=== PATIENT | male | born 1945 | race African-American/Black ===

== ENCOUNTER 2023-06-16 20:56 | Inpatient (IN) | payer MEDICARE, MEDICAID ==
[2023-06-16 21:42] LABS: #Monocytes 0.5 thou/uL (0.11-0.59); #Neutrophils 4.9 thou/uL (1.40-6.50); %Basophils 0.3 % (0.0-1.0); %Eosinophils 0.3 % (0.0-10.0); %Lymphocytes 16.6 % (21.0-51.0); %Monocytes 7.8 % (0.0-10.0); %Neutrophils 74.7 % (42.0-75.0); Hemoglobin 12.7 g/dL (14.0-18.0); Mean Corpuscular HGB CONC 35.8 g/dL (32.0-36.0); Mean Corpuscular Hemoglobin 27.3 pg (27.0-31.0); Mean Corpuscular Volume 76.3 fl (78.0-98.0); Mean Platelet Volume 10.7 fL (7.4-10.4); Platelet Count 194 10x3/uL (130-400); Red Blood Cell (RBC) Count 4.65 mill/uL (4.70-6.10); White Blood Cell (WBC) Count 6.5 10x3/uL (4.8-10.8)
[2023-06-16 21:57] LABS: INR-International Normal Ratio 3.2; PTT 42.1 sec (22.9-36.1); Prothrombin Time 34.2 sec (12.0-14.7)
[2023-06-16 22:06] LABS: ALT (SGPT) 12 U/L (8-55); AST (SGOT) 12 U/L (5-34); Albumin 3.5 g/dL (3.4-4.8); Alkaline Phosphatase 91 U/L (40-110); Anion Gap 10 mmol/L (10-20); BUN (Urea Nitrogen) 11 mg/dL (8.4-25.7); Bilirubin, Total 0.5 mg/dL (0.2-1.2); CK (CPK) 159 U/L (30-200); Calc. Creatinine Clearance 0 mL/min (70-130); Calcium 8.9 mg/dL (7.8-10.44); Carbon Dioxide 26 mmol/L (23-31); Chloride 106 mmol/L (98-107); Estimated GFR 61; Globulin 2.7 g/dL (2.4-3.5); Glucose 79 mg/dL (83-110); Potassium 3.3 mmol/L (3.5-5.1); Protein, Total 6.2 g/dL (5.8-8.1); Sodium 139 mmol/L (136-145)
[2023-06-17] MEDS ORDERED: traZODone HCl 50 MG TAB PO PRN (00:41)
[2023-06-17] MEDS ORDERED: Senokot S 8.6-50 MG TAB PO PRN (00:42)
[2023-06-17] MEDS ORDERED: Ondansetron ODT 4 MG TAB PO PRN (00:42)
[2023-06-17] MEDS ORDERED: Nicotine 14 MG PATCH TD SCH (01:00)
[2023-06-17] MEDS: Acetaminophen 325 MG TAB PO PRN ×3 (01:54→20:38)
[2023-06-17 02:27] VITALS: BMI 31.8
[2023-06-17 03:28] LABS: #Monocytes 0.6 thou/uL (0.11-0.59); #Neutrophils 4.1 thou/uL (1.40-6.50); %Basophils 0.3 % (0.0-1.0); %Eosinophils 0.6 % (0.0-10.0); %Lymphocytes 25.6 % (21.0-51.0); %Monocytes 9.5 % (0.0-10.0); %Neutrophils 63.8 % (42.0-75.0); Hemoglobin 11.9 g/dL (14.0-18.0); Mean Corpuscular HGB CONC 34.5 g/dL (32.0-36.0); Mean Corpuscular Hemoglobin 27.2 pg (27.0-31.0); Mean Platelet Volume 10.7 fL (7.4-10.4); Platelet Count 175 10x3/uL (130-400); RBC Distribution Width 15.2 % (11.5-14.5); Red Blood Cell (RBC) Count 4.38 mill/uL (4.70-6.10); White Blood Cell (WBC) Count 6.4 10x3/uL (4.8-10.8)
[2023-06-17 03:31] LABS: Mean Corpuscular Volume 78.8 fl (78.0-98.0)
[2023-06-17 03:52] LABS: ALT (SGPT) 12 U/L (8-55); AST (SGOT) 15 U/L (5-34); Albumin 3.2 g/dL (3.4-4.8); Alkaline Phosphatase 86 U/L (40-110); Anion Gap 10 mmol/L (10-20); BUN (Urea Nitrogen) 11 mg/dL (8.4-25.7); Bilirubin, Total 0.4 mg/dL (0.2-1.2); Calc. Creatinine Clearance 71 mL/min (70-130); Calcium 8.5 mg/dL (7.8-10.44); Carbon Dioxide 27 mmol/L (23-31); Cardiac Risk 3.6 (Less than 4.5); Chloride 106 mmol/L (98-107); Cholesterol 113 mg/dl (< 200 Desired); Estimated GFR 57; Globulin 2.5 g/dL (2.4-3.5); Glucose 103 mg/dL (83-110); HDL Cholesterol 31 mg/dL (>60 Neg Risk); LDL Cholesterol, Calculated 73 mg/dL; Magnesium 2.7 mg/dL (1.6-2.6); Potassium 3.3 mmol/L (3.5-5.1); Protein, Total 5.7 g/dL (5.8-8.1); Sodium 140 mmol/L (136-145); Triglycerides 45 mg/dL (Less than 150)
[2023-06-17] MEDS ORDERED: Potassium Chloride 20 MEQ TAB PO SCH ×2 (04:00→08:00)
[2023-06-17] MEDS ORDERED: Electrolyte Replacement Protocol 1 EACH FS SCH (04:00)
[2023-06-17] MEDS ORDERED: Furosemide 40 MG TAB PO SCH (07:30)
[2023-06-17] MEDS: Aspirin 81 mg Enteric Coated Tablet PO SCH (08:32)
[2023-06-17] MEDS: Famotidine 20 MG TAB PO SCH ×2 (08:32→20:38)
[2023-06-17] MEDS ORDERED: Tamsulosin HCl 0.4 MG CAP PO SCH (09:00)
[2023-06-17] MEDS ORDERED: Finasteride 5 MG TAB PO SCH (09:00)
[2023-06-17] MEDS ORDERED: Sertraline 100 MG TAB PO SCH (09:00)
[2023-06-17] MEDS ORDERED: Rivaroxaban 10 MG TAB PO SCH (09:00)
[2023-06-17] MEDS ORDERED: hydrALAZINE 25 MG TAB PO SCH (09:00)
[2023-06-17] MEDS ORDERED: dilTIAZem CD 240 MG CAP PO SCH (09:00)
[2023-06-17] MEDS: Iron, Sodium Ferric Gluconate 250 MG in Sodium Chloride 0.9% 250 ML 250 ML IVPB SCH ×2 (10:40→20:38)
[2023-06-17] MEDS: Calcium Carbonate 500 MG ChewTAB PO PRN (10:55)
[2023-06-17 12:18] LABS: Potassium 3.7 mmol/L (3.5-5.1)
[2023-06-17] MEDS: HYDROcodone/Acetaminophen 10/325 mg Tablet PO PRN ×2 (14:50→20:38)
[2023-06-17] MEDS: hydrALAZINE 25 MG TAB PO SCH ×2 (14:51→20:38)
[2023-06-17] MEDS: Atorvastatin Calcium 40 MG TAB PO SCH (20:38)
[2023-06-17] MEDS: Nicotine 14 MG PATCH TD SCH (20:39)
[2023-06-18] MEDS ORDERED: dilTIAZem CD 120 MG CAP PO SCH (09:00)
[2023-06-18] MEDS: Rivaroxaban 10 MG TAB PO SCH (09:31)
[2023-06-18] MEDS: traZODone HCl 50 MG TAB PO SCH (09:31)
[2023-06-18] MEDS: Aspirin 81 mg Enteric Coated Tablet PO SCH (09:31)
[2023-06-18] MEDS: hydrALAZINE 25 MG TAB PO SCH ×3 (09:31→20:42)
[2023-06-18] MEDS: Potassium Chloride 20 MEQ TAB PO SCH (09:32)
[2023-06-18] MEDS: Sertraline 25 MG TAB PO SCH (09:32)
[2023-06-18] MEDS: Tamsulosin HCl 0.4 MG CAP PO SCH (09:32)
[2023-06-18] MEDS: Famotidine 20 MG TAB PO SCH ×2 (09:32→20:43)
[2023-06-18] MEDS: Calcium Carbonate 500 MG ChewTAB PO PRN (09:32)
[2023-06-18] MEDS: HYDROcodone/Acetaminophen 10/325 mg Tablet PO PRN ×3 (09:32→22:00)
[2023-06-18] MEDS: Finasteride 5 MG TAB PO SCH (09:33)
[2023-06-18] MEDS: Furosemide 40 MG TAB PO SCH (09:33)
[2023-06-18] MEDS: Nicotine 14 MG PATCH TD SCH (20:42)
[2023-06-18] MEDS: Atorvastatin Calcium 40 MG TAB PO SCH (20:43)
[2023-06-19] MEDS: HYDROcodone/Acetaminophen 10/325 mg Tablet PO PRN ×4 (03:45→21:14)
[2023-06-19] MEDS: Famotidine 20 MG TAB PO SCH ×2 (09:42→21:03)
[2023-06-19] MEDS: Potassium Chloride 20 MEQ TAB PO SCH (09:42)
[2023-06-19] MEDS: Rivaroxaban 10 MG TAB PO SCH (09:42)
[2023-06-19] MEDS: traZODone HCl 50 MG TAB PO SCH (09:42)
[2023-06-19] MEDS: Finasteride 5 MG TAB PO SCH (09:42)
[2023-06-19] MEDS: Furosemide 40 MG TAB PO SCH (09:42)
[2023-06-19] MEDS: Tamsulosin HCl 0.4 MG CAP PO SCH (09:42)
[2023-06-19] MEDS: Aspirin 81 mg Enteric Coated Tablet PO SCH (09:43)
[2023-06-19] MEDS: hydrALAZINE 25 MG TAB PO SCH ×3 (09:43→21:03)
[2023-06-19] MEDS: Sertraline 25 MG TAB PO SCH (09:43)
[2023-06-19] MEDS: Calcium Carbonate 500 MG ChewTAB PO PRN (09:47)
[2023-06-19] MEDS ORDERED: traZODone HCl 50 MG TAB PO SCH (21:00)
[2023-06-19] MEDS: Nicotine 14 MG PATCH TD SCH (21:02)
[2023-06-19] MEDS: Atorvastatin Calcium 40 MG TAB PO SCH (21:03)
[2023-06-20] MEDS: Tamsulosin HCl 0.4 MG CAP PO SCH (08:46)
[2023-06-20] MEDS: Sertraline 25 MG TAB PO SCH (08:46)
[2023-06-20] MEDS: Potassium Chloride 20 MEQ TAB PO SCH (08:46)
[2023-06-20] MEDS: Furosemide 40 MG TAB PO SCH (08:46)
[2023-06-20] MEDS: Famotidine 20 MG TAB PO SCH (08:46)
[2023-06-20] MEDS: Calcium Carbonate 500 MG ChewTAB PO PRN (08:46)
[2023-06-20] MEDS: Rivaroxaban 10 MG TAB PO SCH (08:46)
[2023-06-20] MEDS: Aspirin 81 mg Enteric Coated Tablet PO SCH (08:46)
[2023-06-20] MEDS: HYDROcodone/Acetaminophen 10/325 mg Tablet PO PRN (08:47)
[2023-06-20] MEDS: Finasteride 5 MG TAB PO SCH (08:47)
[2023-06-20] MEDS: hydrALAZINE 25 MG TAB PO SCH ×2 (08:47→15:15)
[2023-06-20 16:23] VITALS: BP 155/93; TEMP 97.5
== END 2023-06-20 18:35 | disposition home health service (06) | DRG 69 ==
LOC: ERS 20:56 → 2SE 23:57 → OBSVTOIN 06-18 14:21
PROVIDERS: ADMIT Student in an Organized Health Care Education/Training Program; ATTEND Hospitalist
DX: G45.9 Transient cerebral ischemic attack, unspecified (principal); I69.354 Hemiplegia and hemiparesis following cerebral infarction affecting left non-dominant side; G81.91 Hemiplegia, unspecified affecting right dominant side; I48.20 Chronic atrial fibrillation, unspecified; R47.81 Slurred speech; R29.810 Facial weakness; N40.0 Benign prostatic hyperplasia without lower urinary tract symptoms; I25.10 Atherosclerotic heart disease of native coronary artery without angina pectoris; Z96.642 Presence of left artificial hip joint; F17.210 Nicotine dependence, cigarettes, uncomplicated; Z98.890 Other specified postprocedural states; D50.9 Iron deficiency anemia, unspecified; I10 Essential (primary) hypertension; R00.1 Bradycardia, unspecified
CPT/HCPCS: 36415; 36416; 70450; 70496; 70551; 71045; 72125; 80053; 80061; 82550; 83735; 84484; 85025; 85610; 85730; 93005; 93010; 93306; 96374; 96376; G0378; J2916; J7050; Q0162

== ENCOUNTER 2024-07-12 23:24 | Inpatient (IN) | payer MEDICARE ==
[~2024-07-12 23:24] MED LIST: Iopamidol-370 76% 500 ML MDV (1 ML CHARGE) ONE
[2024-07-13 00:20] LABS: #Basophils 0.03 10x3/uL (0.0-0.2); %Basophils 0.5 % (0.0-1.0); %Eosinophils 0.8 % (0.0-10.0); %Lymphocytes 23.3 % (21.0-51.0); %Monocytes 8.3 % (0.0-10.0); %Neutrophils 66.9 % (42.0-75.0); Hematocrit 32.9 % (42.0-52.0); Hemoglobin 11.4 g/dL (14.0-18.0); Mean Corpuscular HGB CONC 34.7 g/dL (32.0-36.0); Mean Corpuscular Hemoglobin 28.4 pg (27.0-31.0); Mean Corpuscular Volume 81.8 fL (78.0-98.0); Mean Platelet Volume 10.2 fL (7.4-10.4); Platelet Count 190 10x3/uL (130-400); RBC Distribution Width 15.1 % (11.5-14.5); Red Blood Cell (RBC) Count 4.02 mill/uL (4.70-6.10)
[2024-07-13] MEDS ORDERED: Aspirin Chewable 81 MG TAB ONE (00:27)
[2024-07-13 00:36] LABS: INR-International Normal Ratio 4.3; Prothrombin Time 41.7 sec (12.0-14.7)
[2024-07-13 00:40] LABS: ALT (SGPT) 7 U/L (8-55); AST (SGOT) 13 U/L (5-34); Albumin 2.9 g/dL (3.4-4.8); Alkaline Phosphatase 108 U/L (40-110); Anion Gap 13 mmol/L (10-20); BUN (Urea Nitrogen) 15 mg/dL (8.4-25.7); Bilirubin, Total 0.4 mg/dL (0.2-1.2); Calc. Creatinine Clearance 0 mL/min (70-130); Carbon Dioxide 21 mmol/L (23-31); Chloride 97 mmol/L (98-107); Estimated GFR 58; Globulin 2.7 g/dL (2.4-3.5); Glucose 132 mg/dL (83-110); Potassium 3.9 mmol/L (3.5-5.1); Protein, Total 5.6 g/dL (5.8-8.1); Sodium 127 mmol/L (136-145)
[2024-07-13 00:41] LABS: Acetaminophen Less than 10 mcg/mL (10.0-30.0); Alcohol Less than 10.0 mg/dL (Less than 10); Salicylate Less than 8.0 mg/dL (15.0-30.0)
[2024-07-13 00:44] LABS: Troponin I 0.013 ng/mL (< 0.028)
[2024-07-13 01:39] LABS: Actual Bicarbonate (HCO3v) 23.5 mEq/L (22-28); Base Excess 3.3 mEq/L (-2.0 to +3.0); Calcium, Ionized (venous) 0.96 mmol/L (1.16-1.32); Chloride (VBG) 108 mmol/L (98-106); Hematocrit-VBG 36 % (42.0-52.0); Hemoglobin (Hb) 12.4 g/dL (12.6-17.4); Potassium (VBG) 4.48 mmol/L (3.70-5.30); Sodium 138 mmol/L (133-146); pH (venous) 7.608 (7.32-7.43)
[2024-07-13 02:54] LABS: Bacteria/HPF None Seen HPF (None Seen); Bilirubin Negative (Negative); Blood, Urine Negative (Negative); CAUTI Indications for Culture Alt mental st,lethar; Clarity Clear (Clear); Glucose, Urine (Dipstick) Normal (Negative); Ketone, Urine Negative (Negative); Leukocyte Negative Leu/uL (Negative); Nitrite Negative (Negative); Protein, Urine (Dipstick) Negative (Neg-Trace); RBC/HPF 0-3 HPF (0-3); Specific Gravity, Urine 1.039 (1.002-1.036); Squamous Epithelial None Seen HPF (0-3); Urobilinogen Normal mg/dL (Less than 2); WBC/HPF 0-3 HPF (0-3); pH, Urine 6.5 (5.0-9.0)
[2024-07-13 02:58] LABS: Urine Culture Reflex No No
[2024-07-13 03:02] LABS: Amphetamine Not Detected (NotDetected); Barbiturates Screen Not Detected (NotDetected); Benzodiazepine Screen Not Detected (NotDetected); Cocaine Metabolite Screen Not Detected (NotDetected); Methadone Not Detected (NotDetected); Methamphetamine Not Detected (NotDetected); Opiate Screen Not Detected (NotDetected); Oxycodone Screen Detected (NotDetected); Phencyclidine (PCP) Not Detected (NotDetected); THC/Cannabinoid Screen Not Detected (NotDetected); Tricyclic Screen Not Detected (NotDetected)
[2024-07-13] MEDS ORDERED: Ondansetron PF 4 MG/2 ML Vial IVP PRN (03:23)
[2024-07-13] MEDS ORDERED: Ondansetron ODT 4 MG TAB PO PRN (03:23)
[2024-07-13] MEDS ORDERED: Acetaminophen 650 MG Suppository PR PRN (03:23)
[2024-07-13] MEDS ORDERED: hydrALAZINE 20 MG/ML VIAL SLOW IVP PRN (03:24)
[2024-07-13 03:32] VITALS: BMI 30.7
[2024-07-13 03:55] LABS: #Basophils 0.03 10x3/uL (0.0-0.2); %Basophils 0.4 % (0.0-1.0); %Eosinophils 0.9 % (0.0-10.0); %Lymphocytes 30.7 % (21.0-51.0); %Monocytes 9.6 % (0.0-10.0); %Neutrophils 58.3 % (42.0-75.0); Hematocrit 34.7 % (42.0-52.0); Hemoglobin 12.2 g/dL (14.0-18.0); Mean Corpuscular HGB CONC 35.2 g/dL (32.0-36.0); Mean Corpuscular Hemoglobin 28.4 pg (27.0-31.0); Mean Corpuscular Volume 80.9 fL (78.0-98.0); Mean Platelet Volume 11.1 fL (7.4-10.4); Platelet Count 216 10x3/uL (130-400); Red Blood Cell (RBC) Count 4.29 mill/uL (4.70-6.10)
[2024-07-13 04:12] LABS: Anion Gap 14 mmol/L (10-20); BUN (Urea Nitrogen) 16 mg/dL (8.4-25.7); Calc. Creatinine Clearance 56 mL/min (70-130); Carbon Dioxide 23 mmol/L (23-31); Chloride 107 mmol/L (98-107); Cholesterol 127 mg/dl (< 200 Desired); Estimated GFR 45; Glucose 105 mg/dL (83-110); HDL Cholesterol 42 mg/dL (>60 Neg Risk); LDL Cholesterol, Calculated 71 mg/dL; Potassium 4.1 mmol/L (3.5-5.1); Sodium 140 mmol/L (136-145); Triglycerides 68 mg/dL (Less than 150)
[2024-07-13] MEDS: Enoxaparin 40 MG (0.4 mL) SYRINGE SC SCH (08:17)
[2024-07-13] MEDS: Aspirin 81 mg Enteric Coated Tablet PO SCH (08:18)
[2024-07-13] MEDS: Acetaminophen 325 MG TAB PO PRN (16:52)
[2024-07-13 17:42] VITALS: BMI 30.7
[2024-07-13] MEDS: traZODone HCl 50 MG TAB PO SCH (20:40)
[2024-07-13] MEDS: Atorvastatin Calcium 40 MG TAB PO SCH (20:40)
[2024-07-14 04:04] LABS: #Basophils 0.03 10x3/uL (0.0-0.2); %Basophils 0.6 % (0.0-1.0); %Eosinophils 1.4 % (0.0-10.0); %Lymphocytes 35.6 % (21.0-51.0); %Monocytes 10.7 % (0.0-10.0); %Neutrophils 51.5 % (42.0-75.0); Hematocrit 32.5 % (42.0-52.0); Hemoglobin 11.5 g/dL (14.0-18.0); Mean Corpuscular HGB CONC 35.4 g/dL (32.0-36.0); Mean Corpuscular Hemoglobin 27.7 pg (27.0-31.0); Mean Corpuscular Volume 78.3 fL (78.0-98.0); Mean Platelet Volume 10.9 fL (7.4-10.4); Platelet Count 194 10x3/uL (130-400); RBC Distribution Width 14.7 % (11.5-14.5); Red Blood Cell (RBC) Count 4.15 mill/uL (4.70-6.10)
[2024-07-14 04:33] LABS: ALT (SGPT) 7 U/L (8-55); AST (SGOT) 10 U/L (5-34); Albumin 2.8 g/dL (3.4-4.8); Alkaline Phosphatase 111 U/L (40-110); Anion Gap 10 mmol/L (10-20); BUN (Urea Nitrogen) 15 mg/dL (8.4-25.7); Bilirubin, Total 0.6 mg/dL (0.2-1.2); Calc. Creatinine Clearance 81 mL/min (70-130); Calcium 8.6 mg/dL (7.8-10.44); Carbon Dioxide 25 mmol/L (23-31); Chloride 108 mmol/L (98-107); Estimated GFR 71; Globulin 2.9 g/dL (2.4-3.5); Glucose 104 mg/dL (83-110); Potassium 3.8 mmol/L (3.5-5.1); Protein, Total 5.7 g/dL (5.8-8.1); Sodium 139 mmol/L (136-145)
[2024-07-14] MEDS: Sertraline 25 MG TAB PO SCH (08:17)
[2024-07-14] MEDS: Polyethylene Glycol 3350 17 GM Packet PO SCH (08:17)
[2024-07-14] MEDS: Docusate 100 MG CAP PO PRN (08:17)
[2024-07-14] MEDS ORDERED: Aspirin 81 mg Enteric Coated Tablet PO SCH (09:00)
[2024-07-15] MEDS: hydrALAZINE 25 MG TAB PO SCH (19:54)
[2024-07-15] MEDS: Potassium Chloride 20 MEQ TAB PO SCH (19:55)
[2024-07-16] MEDS: Rivaroxaban 10 MG TAB PO SCH (08:48)
[2024-07-16] MEDS: Finasteride 5 MG TAB PO SCH (08:49)
[2024-07-16] MEDS ORDERED: Morphine 2 MG/ML VIAL SLOW IVP PRN (12:30)
[2024-07-16] MEDS: Fioricet 325/50/40 mg Tablet PO PRN (12:49)
[2024-07-16] MEDS: Ketorolac Tromethamine 30 MG (1 mL) VIAL IVP PRN (12:49)
[2024-07-17 04:18] LABS: #Basophils Less than 0.03 10x3/uL (0.0-0.2); %Basophils 0.3 % (0.0-1.0); %Eosinophils 1.2 % (0.0-10.0); %Lymphocytes 29.5 % (21.0-51.0); %Monocytes 10.7 % (0.0-10.0); %Neutrophils 58.1 % (42.0-75.0); Hematocrit 36.1 % (42.0-52.0); Hemoglobin 12.7 g/dL (14.0-18.0); Mean Corpuscular HGB CONC 35.2 g/dL (32.0-36.0); Mean Corpuscular Volume 79.7 fL (78.0-98.0); Mean Platelet Volume 10.7 fL (7.4-10.4); Platelet Count 214 10x3/uL (130-400); RBC Distribution Width 14.6 % (11.5-14.5); Red Blood Cell (RBC) Count 4.53 mill/uL (4.70-6.10)
[2024-07-17 05:00] LABS: Anion Gap 12 mmol/L (10-20); BUN (Urea Nitrogen) 16 mg/dL (8.4-25.7); Calc. Creatinine Clearance 88 mL/min (70-130); Calcium 8.7 mg/dL (7.8-10.44); Carbon Dioxide 22 mmol/L (23-31); Chloride 110 mmol/L (98-107); Estimated GFR 78; Glucose 99 mg/dL (83-110); Sodium 140 mmol/L (136-145)
[2024-07-17 08:36] LABS: INR-International Normal Ratio 1.4; Prothrombin Time 16.9 sec (12.0-14.7)
[2024-07-17] MEDS: Amlodipine 5 MG TAB PO SCH (08:50)
[2024-07-17] MEDS: Docusate 100 MG CAP PO SCH (12:42)
[2024-07-18] MEDS: Lactulose 20 GM (30 mL) UDCUP PO SCH (05:57)
[2024-07-18] MEDS: Ketorolac Tromethamine 30 MG (1 mL) VIAL IVP SCH (05:58)
[2024-07-18] MEDS: Docusate 100 MG CAP PO SCH (08:45)
[2024-07-18] MEDS: diphenhydrAMINE 50 MG/ML VIAL IVP SCH (12:03)
[2024-07-18 12:08] VITALS: BP 143/89; TEMP 97.8
[2024-07-18] MEDS: Prochlorperazine Edisylate 10 MG in Sodium Chloride 0.9% 50 ML IVPB SCH (12:42)
== END 2024-07-18 16:21 | DRG 65 ==
LOC: ERS 23:24 → 2SE 07-13 02:17
PROVIDERS: ADMIT Student in an Organized Health Care Education/Training Program; ATTEND Internal Medicine
DX: I63.89 Other cerebral infarction (principal); E87.1 Hypo-osmolality and hyponatremia; G81.94 Hemiplegia, unspecified affecting left nondominant side; N17.9 Acute kidney failure, unspecified; I48.20 Chronic atrial fibrillation, unspecified; I10 Essential (primary) hypertension; D64.9 Anemia, unspecified; I65.02 Occlusion and stenosis of left vertebral artery; Z79.01 Long term (current) use of anticoagulants; R29.707 NIHSS score 7; F17.210 Nicotine dependence, cigarettes, uncomplicated; Z79.899 Other long term (current) drug therapy; Z79.82 Long term (current) use of aspirin
CPT/HCPCS: 36415; 36416; 70450; 70496; 70498; 70551; 71045; 80048; 80053; 80061; 80306; 80307; 81001; 82140; 82805; 83605; 83880; 84484; 85025; 85610; 85730; 93005; 93306; J0780; J1200; J1650; J1885; Q9967

== ENCOUNTER 2024-11-12 04:22 | Observation (INO) | payer MEDICARE ==
[2024-11-12 06:54] VITALS: BMI 32.1
[2024-11-12] MEDS ORDERED: Nitroglycerin 0.4 MG TAB (25 Tab Bottle) SL PRN (07:52)
[2024-11-12] MEDS ORDERED: Ondansetron PF 4 MG/2 ML Vial IVP PRN (07:52)
[2024-11-12] MEDS ORDERED: Ondansetron ODT 4 MG TAB PO PRN (07:52)
[2024-11-12] MEDS ORDERED: Aspirin Chewable 81 MG TAB PO SCH (09:00)
[2024-11-12] MEDS: Enoxaparin 40 MG (0.4 mL) SYRINGE SC SCH (10:00)
[2024-11-12] MEDS ORDERED: Dextrose 50% Abboject 50 ML SYRINGE SLOW IVP PRN (11:07)
[2024-11-12] MEDS ORDERED: Insulin Lispro 100 UNIT/ML 10 ML VIAL SC PRN (11:07)
[2024-11-12] MEDS ORDERED: Glucagon 1 MG/ML KIT IM PRN (11:07)
[2024-11-12] MEDS ORDERED: Dextrose 5% in Water 1,000 ML IV PRN (11:07)
[2024-11-12] MEDS: FLU (Fluad Triv) TS24-25 (65UP)/MF59C/PF 45 MCG/0.5 ML Syringe IM ONE (12:43)
[2024-11-12] MEDS: hydrALAZINE 20 MG/ML VIAL SLOW IVP PRN (12:44)
[2024-11-12] MEDS: Nitroglycerin 2% Ointment 1 INCH/1 GM Packet TOP SCH (13:54)
[2024-11-12] MEDS: Insulin Lispro 100 UNIT/ML 10 ML VIAL SC PRN (17:47)
[2024-11-12 17:49] LABS: Troponin I Less than 0.010 ng/mL (< 0.028)
[2024-11-13 04:22] LABS: #Basophils 0.03 10x3/uL (0.0-0.2); %Basophils 0.5 % (0.0-1.0); %Eosinophils 2.4 % (0.0-10.0); %Lymphocytes 31.3 % (21.0-51.0); %Monocytes 10.5 % (0.0-10.0); %Neutrophils 55.3 % (42.0-75.0); Hematocrit 35.5 % (42.0-52.0); Mean Corpuscular HGB CONC 36.6 g/dL (32.0-36.0); Mean Corpuscular Hemoglobin 27.8 pg (27.0-31.0); Mean Corpuscular Volume 75.9 fL (78.0-98.0); Mean Platelet Volume 10.4 fL (7.4-10.4); Platelet Count 197 10x3/uL (130-400); RBC Distribution Width 16.9 % (11.5-14.5); Red Blood Cell (RBC) Count 4.68 mill/uL (4.70-6.10)
[2024-11-13 05:03] LABS: Anion Gap 13 mmol/L (10-20); BUN (Urea Nitrogen) 16 mg/dL (8.4-25.7); Calc. Creatinine Clearance 110 mL/min (70-130); Calcium 8.5 mg/dL (7.8-10.44); Carbon Dioxide 23 mmol/L (23-31); Cardiac Risk 2.5 (Less than 4.5); Chloride 105 mmol/L (98-107); Cholesterol 86 mg/dl (< 200 Desired); Estimated GFR 90; Glucose 109 mg/dL (83-110); HDL Cholesterol 35 mg/dL (>60 Neg Risk); LDL Cholesterol, Calculated 43 mg/dL; Potassium 3.3 mmol/L (3.5-5.1); Sodium 138 mmol/L (136-145); Triglycerides 38 mg/dL (Less than 150)
[2024-11-13] MEDS: Acetaminophen 325 MG TAB PO PRN (05:16)
[2024-11-13] MEDS: Aspirin Chewable 81 MG TAB PO SCH (08:16)
[2024-11-13] MEDS ORDERED: Regadenoson 0.4 MG/5 ML SYRINGE ONE (11:09)
[2024-11-13 16:46] VITALS: BP 172/101
[2024-11-13 16:49] VITALS: TEMP 98.2
== END 2024-11-13 21:50 | disposition home or self-care (01) ==
LOC: 2NO 06:03
PROVIDERS: ADMIT Internal Medicine; ATTEND Family Medicine
DX: R07.9 Chest pain, unspecified (principal); I48.20 Chronic atrial fibrillation, unspecified; I10 Essential (primary) hypertension; Z86.73 Personal history of transient ischemic attack (TIA), and cerebral infarction without residual deficits; Z96.659 Presence of unspecified artificial knee joint; Z96.649 Presence of unspecified artificial hip joint; Z87.891 Personal history of nicotine dependence; Z79.82 Long term (current) use of aspirin; Z79.899 Other long term (current) drug therapy
CPT/HCPCS: 78452; 80048; 80061; 82962 ×2; 84484; 85025; 93017; 96374; 96376; A9502; G0378 ×2; J0360 ×2; J1650 ×2; J1815; J2785 ×2; 36415; 36416

== ENCOUNTER 2024-12-01 06:32 | Inpatient (IN) | payer MEDICARE ==
[2024-12-01 10:09] VITALS: BMI 31.5
[2024-12-01] MEDS ORDERED: hydrALAZINE 20 MG/ML VIAL SLOW IVP PRN (10:34)
[2024-12-01] MEDS ORDERED: Ondansetron PF 4 MG/2 ML Vial IVP PRN (10:34)
[2024-12-01] MEDS ORDERED: Ondansetron ODT 4 MG TAB PO PRN (10:34)
[2024-12-01] MEDS ORDERED: Nitroglycerin 0.4 MG TAB (25 Tab Bottle) SL PRN (10:37)
[2024-12-01] MEDS ORDERED: oxyCODONE/Acetaminophen 5 mg/325 mg Tablet PO PRN (11:12)
[2024-12-01] MEDS: hydrALAZINE 25 MG TAB PO SCH (14:49)
[2024-12-01] MEDS: Potassium Chloride 20 MEQ TAB PO SCH (16:19)
[2024-12-01] MEDS: Polyethylene Glycol 3350 17 GM Packet PO SCH (19:55)
[2024-12-01] MEDS: Senokot S 8.6-50 MG TAB PO SCH (20:35)
[2024-12-01] MEDS: Isosorbide Dinitrate 5 MG TAB PO SCH (20:35)
[2024-12-01] MEDS: cloNIDine 0.2 MG TAB PO SCH (20:35)
[2024-12-01] MEDS: traZODone HCl 50 MG TAB PO SCH (20:36)
[2024-12-01] MEDS: Famotidine 20 MG TAB PO SCH (20:36)
[2024-12-01] MEDS: Atorvastatin Calcium 40 MG TAB PO SCH (20:36)
[2024-12-02 07:06] LABS: #Basophils 0.03 10x3/uL (0.0-0.2); %Basophils 0.7 % (0.0-1.0); %Eosinophils 1.6 % (0.0-10.0); %Monocytes 14.5 % (0.0-10.0); Hematocrit 31.5 % (42.0-52.0); Hemoglobin 10.7 g/dL (14.0-18.0); Mean Corpuscular Hemoglobin 26.3 pg (27.0-31.0); Mean Corpuscular Volume 77.4 fL (78.0-98.0); Mean Platelet Volume 9.7 fL (7.4-10.4); Platelet Count 267 10x3/uL (130-400); RBC Distribution Width 16.1 % (11.5-14.5); Red Blood Cell (RBC) Count 4.07 mill/uL (4.70-6.10)
[2024-12-02 07:11] LABS: Hemoglobin A1c 6.5 % (4.0-6.0)
[2024-12-02 07:25] LABS: Anion Gap 9 mmol/L (10-20); BUN (Urea Nitrogen) 12 mg/dL (8.4-25.7); Calc. Creatinine Clearance 106 mL/min (70-130); Calcium 8.4 mg/dL (7.8-10.44); Carbon Dioxide 23 mmol/L (23-31); Chloride 112 mmol/L (98-107); Estimated GFR 90; Glucose 112 mg/dL (83-110); Potassium 4.1 mmol/L (3.5-5.1); Sodium 140 mmol/L (136-145)
[2024-12-02] MEDS: Losartan 25 MG TAB PO SCH (08:59)
[2024-12-02] MEDS: Cholecalciferol 1,000 UNITS (25 MCG) TAB PO SCH (09:00)
[2024-12-02] MEDS: Aspirin Chewable 81 MG TAB PO SCH (09:00)
[2024-12-02] MEDS: Finasteride 5 MG TAB PO SCH (09:00)
[2024-12-02] MEDS: DULoxetine 60 MG CAP PO SCH (09:00)
[2024-12-02] MEDS: Amlodipine 10 MG TAB PO SCH (09:00)
[2024-12-02 12:30] VITALS: BMI 31.5
[2024-12-02] MEDS: Rivaroxaban 10 MG TAB PO SCH (16:00)
[2024-12-03] MEDS: Acetaminophen 500 MG TAB PO PRN (04:07)
[2024-12-03] MEDS: GUAIFENESIN SF SOLN 200 MG/10 ML UDCUP PO PRN (04:44)
[2024-12-03 06:08] LABS: #Basophils 0.03 10x3/uL (0.0-0.2); %Basophils 0.4 % (0.0-1.0); %Eosinophils 0.7 % (0.0-10.0); %Lymphocytes 13.5 % (21.0-51.0); %Monocytes 7.9 % (0.0-10.0); %Neutrophils 77.1 % (42.0-75.0); Hemoglobin 10.3 g/dL (14.0-18.0); Mean Corpuscular HGB CONC 34.3 g/dL (32.0-36.0); Mean Corpuscular Hemoglobin 26.5 pg (27.0-31.0); Mean Corpuscular Volume 77.3 fL (78.0-98.0); Mean Platelet Volume 9.3 fL (7.4-10.4); Platelet Count 236 10x3/uL (130-400); Red Blood Cell (RBC) Count 3.88 mill/uL (4.70-6.10)
[2024-12-03 06:30] LABS: Anion Gap 11 mmol/L (10-20); BUN (Urea Nitrogen) 19 mg/dL (8.4-25.7); Calc. Creatinine Clearance 104 mL/min (70-130); Calcium 8.5 mg/dL (7.8-10.44); Carbon Dioxide 23 mmol/L (23-31); Chloride 109 mmol/L (98-107); Estimated GFR 89; Glucose 115 mg/dL (83-110); Potassium 4.4 mmol/L (3.5-5.1); Sodium 139 mmol/L (136-145)
[2024-12-03] MEDS: Phenol 177 ML BOT PO PRN (13:21)
[2024-12-03] MEDS: traMADol HCl 50 MG TAB PO PRN (13:21)
[2024-12-03] MEDS: Losartan 25 MG TAB PO SCH (21:03)
[2024-12-04 05:41] LABS: #Basophils 0.03 10x3/uL (0.0-0.2); %Basophils 0.2 % (0.0-1.0); %Eosinophils 0.4 % (0.0-10.0); %Lymphocytes 7.7 % (21.0-51.0); %Monocytes 4.7 % (0.0-10.0); %Neutrophils 86.3 % (42.0-75.0); Hematocrit 30.3 % (42.0-52.0); Hemoglobin 10.4 g/dL (14.0-18.0); Mean Corpuscular HGB CONC 34.3 g/dL (32.0-36.0); Mean Corpuscular Hemoglobin 26.3 pg (27.0-31.0); Mean Corpuscular Volume 76.7 fL (78.0-98.0); Platelet Count 212 10x3/uL (130-400); RBC Distribution Width 15.9 % (11.5-14.5); Red Blood Cell (RBC) Count 3.95 mill/uL (4.70-6.10)
[2024-12-04 06:05] LABS: Anion Gap 9 mmol/L (10-20); BUN (Urea Nitrogen) 23 mg/dL (8.4-25.7); Calc. Creatinine Clearance 107 mL/min (70-130); Calcium 8.7 mg/dL (7.8-10.44); Carbon Dioxide 24 mmol/L (23-31); Chloride 107 mmol/L (98-107); Estimated GFR 90; Glucose 127 mg/dL (83-110); Potassium 3.4 mmol/L (3.5-5.1); Sodium 137 mmol/L (136-145)
[2024-12-04] MEDS: LevoFLOXacin 500 MG TAB PO SCH (10:41)
[2024-12-04] MEDS: Ipratropium/Albuterol 3 ML NEB NEB SCH (13:18)
[2024-12-04 18:35] LABS: Bacteria/HPF None Seen HPF (None Seen); Bilirubin Negative (Negative); Blood, Urine Negative (Negative); CAUTI Indications for Culture Fever or rigors; Clarity Clear (Clear); Glucose, Urine (Dipstick) Normal (Negative); Ketone, Urine Negative (Negative); Leukocyte Negative Leu/uL (Negative); Nitrite Negative (Negative); Protein, Urine (Dipstick) 70 mg/dL (Neg-Trace); RBC/HPF 0-3 HPF (0-3); Specific Gravity, Urine 1.022 (1.002-1.036); Squamous Epithelial 0-3 HPF (0-3); Urobilinogen Normal mg/dL (Less than 2); WBC/HPF 0-3 HPF (0-3)
[2024-12-04 18:36] LABS: Urine Culture Reflex No No
[2024-12-05] MEDS: LevoFLOXacin 500 MG TAB PO SCH (05:18)
[2024-12-05 07:05] LABS: #Basophils Less than 0.03 10x3/uL (0.0-0.2); %Basophils 0.2 % (0.0-1.0); %Eosinophils 0.9 % (0.0-10.0); %Lymphocytes 6.7 % (21.0-51.0); %Monocytes 7.5 % (0.0-10.0); %Neutrophils 84.2 % (42.0-75.0); Hematocrit 30.3 % (42.0-52.0); Hemoglobin 10.6 g/dL (14.0-18.0); Mean Corpuscular Hemoglobin 26.4 pg (27.0-31.0); Mean Corpuscular Volume 75.6 fL (78.0-98.0); Mean Platelet Volume 9.7 fL (7.4-10.4); Platelet Count 203 10x3/uL (130-400); RBC Distribution Width 15.9 % (11.5-14.5); Red Blood Cell (RBC) Count 4.01 mill/uL (4.70-6.10)
[2024-12-05 07:17] LABS: Calc. Creatinine Clearance 112 mL/min (70-130); Estimated GFR 91
[2024-12-05 07:18] LABS: Anion Gap 10 mmol/L (10-20); BUN (Urea Nitrogen) 19 mg/dL (8.4-25.7); Calcium 8.8 mg/dL (7.8-10.44); Carbon Dioxide 23 mmol/L (23-31); Chloride 107 mmol/L (98-107); Glucose 95 mg/dL (83-110); Potassium 3.2 mmol/L (3.5-5.1); Sodium 137 mmol/L (136-145)
[2024-12-05] MEDS: Morphine 2 MG/ML VIAL SLOW IVP PRN (09:08)
[2024-12-06 04:45] LABS: #Basophils Less than 0.03 10x3/uL (0.0-0.2); %Basophils 0.2 % (0.0-1.0); %Eosinophils 1.4 % (0.0-10.0); %Lymphocytes 9.8 % (21.0-51.0); %Monocytes 9.8 % (0.0-10.0); %Neutrophils 78.4 % (42.0-75.0); Hematocrit 27.4 % (42.0-52.0); Hemoglobin 9.5 g/dL (14.0-18.0); Mean Corpuscular HGB CONC 34.7 g/dL (32.0-36.0); Mean Corpuscular Hemoglobin 26.5 pg (27.0-31.0); Mean Corpuscular Volume 76.5 fL (78.0-98.0); Mean Platelet Volume 10.3 fL (7.4-10.4); Platelet Count 213 10x3/uL (130-400); RBC Distribution Width 15.8 % (11.5-14.5); Red Blood Cell (RBC) Count 3.58 mill/uL (4.70-6.10)
[2024-12-06 05:06] LABS: Anion Gap 8 mmol/L (10-20); BUN (Urea Nitrogen) 20 mg/dL (8.4-25.7); Calc. Creatinine Clearance 98 mL/min (70-130); Calcium 8.6 mg/dL (7.8-10.44); Carbon Dioxide 26 mmol/L (23-31); Chloride 105 mmol/L (98-107); Estimated GFR 86; Glucose 113 mg/dL (83-110); Potassium 3.5 mmol/L (3.5-5.1); Sodium 135 mmol/L (136-145)
[2024-12-09 15:44] VITALS: BP 129/73; TEMP 98
== END 2024-12-09 15:34 | DRG 637 ==
LOC: INTOOBSV 09:19 → T4-A 09:19 → OBSVTOIN 12-03 12:43
PROVIDERS: ADMIT Student in an Organized Health Care Education/Training Program; ATTEND Internal Medicine
DX: E11.621 Type 2 diabetes mellitus with foot ulcer (principal); J18.9 Pneumonia, unspecified organism; I48.20 Chronic atrial fibrillation, unspecified; I69.354 Hemiplegia and hemiparesis following cerebral infarction affecting left non-dominant side; K21.9 Gastro-esophageal reflux disease without esophagitis; E78.5 Hyperlipidemia, unspecified; I10 Essential (primary) hypertension; Z96.643 Presence of artificial hip joint, bilateral; E11.65 Type 2 diabetes mellitus with hyperglycemia; L97.519 Non-pressure chronic ulcer of other part of right foot with unspecified severity; F17.210 Nicotine dependence, cigarettes, uncomplicated; E87.6 Hypokalemia; R53.81 Other malaise; N40.0 Benign prostatic hyperplasia without lower urinary tract symptoms; Z74.01 Bed confinement status; Z79.82 Long term (current) use of aspirin; Z79.01 Long term (current) use of anticoagulants; Z79.899 Other long term (current) drug therapy
CPT/HCPCS: 36415; 71045; 80048; 81001; 83036; 85025; 94640; 97139; G0378; J2272; J7620